=== PATIENT | female | born 1955 | race Caucasian/White ===

== ENCOUNTER 2021-06-07 09:38 | Emergency (ER) | payer MEDICARE, BC ==
[2021-06-07 13:34] VITALS: BP 140/70; PULSE 70
== END 2021-06-07 13:34 | disposition home or self-care (01) ==
LOC: JD.ED 09:38
DX: K21.9 Gastro-esophageal reflux disease without esophagitis (principal); E03.9 Hypothyroidism, unspecified; Z79.899 Other long term (current) drug therapy
CPT/HCPCS: 36415; 71045; 71045-26; 80053; 84484; 85025; 85379; 86140; 93010; 99284-25; 99285